=== PATIENT | female | born 1935 | race Caucasian/White ===

== ENCOUNTER 2016-09-06 08:00 | Outpatient (CLI) | payer MEDICARE, OTHER | END 2016-09-06 08:01 | disposition home or self-care (01) | DX: E11.9 Type 2 diabetes mellitus without complications (principal); K58.9 Irritable bowel syndrome, unspecified ==

== ENCOUNTER 2017-01-06 07:18 | Outpatient (CLI) | payer MEDICARE, OTHER ==
[2017-01-06 12:23] LABS: ALBUMIN/GLOBULIN RATIO 1.2 (1.0-2.2); BILIRUBIN,TOTAL 0.4 mg/dL (0.2-1.0); BUN - BLOOD UREA NITROGEN 18 mg/dL (6-20); CALCIUM 9.4 mg/dL (8.5-10.3); CARBON DIOXIDE - CO2 23 mmol/L (21-32); CHLORIDE 104 mmol/L (101-111); CHOL/HDL RATIO 3.7 (<4.4); CHOLESTEROL 164 mg/dL; CREATININE 0.8 mg/dL (0.4-1.0); GFR - MDRD 69 (>89); GLUCOSE 115 mg/dL (70-100); HDL CHOLESTEROL 44 mg/dL; POTASSIUM 4.1 mmol/L (3.5-5.0); SODIUM 136 mmol/L (135-145); TOTAL PROTEIN 7.6 g/dL (6.7-8.2); TRIGLYCERIDES 158 mg/dL; VLDL CHOLESTEROL 32 mg/dL
[2017-01-06 12:50] LABS: HEMOGLOBIN A1C 0.63 g/dL
== END 2017-01-06 07:19 | disposition home or self-care (01) ==
LOC: LAB.F 07:18
PROVIDERS: ATTEND Physician Assistant Medical
DX: E11.9 Type 2 diabetes mellitus without complications (principal)
CPT/HCPCS: 36415; 80053; 80061; 83036

== ENCOUNTER 2017-03-03 11:09 | Emergency (ER) | payer MEDICARE, OTHER ==
[2017-03-03 11:28] VITALS: BP 130/75
--- NOTE | 2017-03-03 13:10 | ED Physician Documentation ---
PD HPI LOWER EXT INJURY - Stated complaint Stated Complaint: R LEG INJ-PX - Chief complaint Chief Complaint: Ext Problem - History obtained from History obtained from: Patient - History of Present Illness PD HPI LOW EXT INJURY LOCATION: Right, Upper leg, Lower leg, Ankle Type of injury: Blunt / blow (a headboard leaning fell over and struck her in lateral right lower thigh, then to lower leg and outer ankle. Pain in those areas with bruising.) Where injury occurred: Home Timing - onset: Today Timing - details: Abrupt onset, Still present Worsened by: Moving, Palpating Associated symptoms: Swelling, Discolored (bruising in those areas). No: Weakness, Numbness Contributing factors: No: Anticoagulated Similar symptoms before: Has not had sx before Recently seen: Not recently seen Review of Systems Constitutional: denies: Fever, Chills Cardiac: denies: Chest pain / pressure GI: denies: Abdominal Pain Skin: reports: Abrasion (s). denies: Laceration (s) Neurologic: denies: Focal weakness, Numbness, Altered mental status, Headache, Head injury PD PAST MEDICAL HISTORY - Past Medical History Cardiovascular: Hypertension Endocrine/Autoimmune: Type 2 diabetes - Present Medications Home Medications: Ambulatory Orders Medication Instructions Recorded Confirmed Lisinopril 2.5 mg PO DAILY 07/06/14 03/03/17 Lovastatin 40 mg PO DAILY 07/06/14 03/03/17 Metformin HCl 1,000 mg PO BID 07/06/14 03/03/17 Anastrozole 1 mg PO DAILY 03/03/17 03/03/17 Anastrozole 1 mg PO DAILY 03/03/17 03/03/17 Fluticasone [Flonase] 1 spray SABINE DAILY PRN 03/03/17 03/03/17 Fluticasone [Flonase] 1 sprays SABINE DAILY 03/03/17 03/03/17 Methenamine Hippurate 1 gm PO BID 03/03/17 03/03/17 Methenamine Hippurate 1 gm PO BID 03/03/17 03/03/17 Metoprolol Tartrate 25 mg PO BID 03/03/17 03/03/17 Pantoprazole [Protonix] 40 mg PO DAILY 03/03/17 03/03/17 Pantoprazole [Protonix] 40 mg PO DAILY 03/03/17 03/03/17 - Allergies Allergies/Adverse Reactions: Allergies Allergy/AdvReac Type Severity Reaction Status Date / Time amoxicillin Allergy Anaphylaxis Verified 03/03/17 12:58 aspirin Allergy Nausea Verified 03/03/17 12:58 nitrofurantoin Allergy Anaphylaxis Verified 03/03/17 12:58 [From Macrobid] nitrofurantoin Allergy Anaphylaxis Verified 03/03/17 12:58 macrocrystalline * [From Macrobid] levofloxacin AdvReac Nausea Verified 03/03/17 12:58 - Social History Does the pt smoke?: No Smoking Status: Never smoker Does the pt drink ETOH?: No Does the pt have substance abuse?: No - Immunizations Immunizations are current?: No Immunizations: TDAP >10years/unknown - POLST Patient has POLST: No PD ED PE NORMAL - Vitals Vital signs reviewed: Yes - General General: Alert and oriented X 3, Well developed/nourished - HEENT HEENT: Atraumatic - Neck Neck: Supple, no meningeal sign, No bony TTP, No adenopathy - Derm Derm: Normal color, Warm and dry - Extremities Extremities: Other (right lateral lower thigh with bruising and tenderness. No large hematoma at this time. Knee itslef is not tender with good stress testing and no effusion, good ROM. Right lower leg with bruising/tender lateral lower leg and outer ankle/ proximal foot. Distal foot and toes not tender. Good color and cap refill in toes. ) - Neuro Neuro: No motor deficit, No sensory deficit Results - Vitals Vitals: Vital Signs - 24 hr 03/03/17 03/03/17 11:23 14:46 Temperature 36.5 C Heart Rate 69 78 Respiratory 16 16 Rate Blood Pressure 130/75 O2 Saturation 97 Oxygen O2 Source Room air - Rads (name of study) right upper and lower legs and ankle Radiology: Prelim report reviewed, EMP read contemporaneously (no fractures) PD MEDICAL DECISION MAKING - ED course Complexity details: reviewed results (no fractures), considered differential, d/ w patient Departure - Departure Disposition: 01 Home, Self Care Clinical Impression: Multiple leg contusions Qualifiers: Encounter type: initial encounter Laterality: right Qualified Code(s): S80.11XA - Contusion of right lower leg, initial encounter Condition: Stable Record reviewed to determine appropriate education?: Yes Instructions: ED Contusion Lower Ext Follow-Up: Jing Vanessa PA-C [Primary Care Provider] - Comments: Tylenol or ibuprofen if needed for pains. Ice and cool towels to the areas of swelling periodically. He can try the ankle brace to see if it helps the ankle and foot feel better. It has not required for healing. Etienne wrap can be used for swelling. The bruising will likely come out below and around the current bruises over the next few days. This will cause a little bit of swelling locally. Recheck if continues to swell more at after several days or any other concerns develop. There are no fractures seen on x-rays. Discharge Date/Time: 03/03/17 14:47
--- NOTE | 2017-03-03 13:58 | XRAY Preliminary Report ---
Exam: XR Foot 3 View RT IMPRESSION: Normal foot radiography. [facility] SITE ID: [id number]
--- NOTE | 2017-03-03 14:00 | XRAY Preliminary Report ---
Exam: XR Ankle 3 View RT IMPRESSION: No bony abnormality. [facility] SITE ID: [id number]
--- NOTE | 2017-03-03 14:08 | XRAY Preliminary Report ---
Exam: XR Femur 2V RT IMPRESSION: No bony abnormality. [facility] SITE ID: [id number]
--- NOTE | 2017-03-03 14:09 | XRAY Report ---
EXAM: RIGHT FOOT RADIOGRAPHY EXAM DATE: 03/03/2017 01:40 PM. CLINICAL HISTORY: Dorsal foot pain after dropping heavy object on foot. COMPARISON: None. TECHNIQUE: 4 views. FINDINGS: Bones: Normal. No fractures or bone lesions. Joints: Normal. No subluxations. Soft Tissues: Normal. Phlebolith. Subcutaneous fat anterior medial to the distal tibia. No soft tissu e swelling. IMPRESSION: Normal foot radiography. [facility] Referring Provider Line: [phone] SITE ID: [id number]
--- NOTE | 2017-03-03 14:09 | XRAY Report ---
EXAM: RIGHT ANKLE RADIOGRAPHY EXAM DATE: 03/03/2017 01:39 PM. CLINICAL HISTORY: Lateral pain after dropping heavy object on leg and foot. COMPARISON: None. TECHNIQUE: 3 views. FINDINGS: Bones: Normal. No fractures or bone lesions. Joints: Normal. No effusion. No subluxations. The ankle mortise is normally aligned. Soft Tissues: Mild edema over the lateral malleolus. IMPRESSION: No bony abnormality. [facility] Referring Provider Line: [phone] SITE ID: [id number]
--- NOTE | 2017-03-03 14:19 | XRAY Report ---
EXAM: RIGHT FEMUR RADIOGRAPHY EXAM DATE: 03/03/2017 01:40 PM. CLINICAL HISTORY: Lateral right femur pain after dropping heavy object on leg. COMPARISON: None. TECHNIQUE: 4 views. FINDINGS: Bones: Normal. No fracture or bone lesion. Joints: The visualized hip and knee joints are normal. No effusions. Mild degenerative changes right sacroiliac joint. Soft Tissues: Surgical clips right groin. IMPRESSION: No bony abnormality. [facility] Referring Provider Line: [phone] SITE ID: [id number]
== END 2017-03-03 14:47 | disposition home or self-care (01) ==
LOC: ED 11:09
DX: S70.11XA Contusion of right thigh, initial encounter (principal); S90.01XA Contusion of right ankle, initial encounter; S90.31XA Contusion of right foot, initial encounter; S80.11XA Contusion of right lower leg, initial encounter; W20.8XXA Other cause of strike by thrown, projected or falling object, initial encounter; Y92.019 Unspecified place in single-family (private) house as the place of occurrence of the external cause; I10 Essential (primary) hypertension; E11.9 Type 2 diabetes mellitus without complications; Z79.84 Long term (current) use of oral hypoglycemic drugs
CPT/HCPCS: 99282; 99283

== ENCOUNTER 2017-08-04 07:24 | Outpatient (CLI) | payer MEDICARE, OTHER ==
[2017-08-04 10:38] LABS: BASOPHILS % (AUTO) 0.7 %; EOSINOPHILS # (AUTO) 0.1 10^3/uL (0.0-0.7); EOSINOPHILS % (AUTO) 1.5 %; HGB - HEMOGLOBIN 12.6 g/dL (12.0-16.0); LYMPHOCYTES % (AUTO) 30.4 %; MEAN CORPUSCULAR HEMOGLOBIN 30.4 pg (27.0-31.0); MEAN CORPUSCULAR HGB CONC 33.4 g/dL (32.0-36.0); MEAN CORPUSCULAR VOLUME 90.8 fL (81.0-99.0); MEAN PLATELET VOLUME 10.1 fL (7.9-10.8); MONOCYTES # (AUTO) 0.6 10^3/uL (0.0-1.0); MONOCYTES % (AUTO) 8.8 %; NEUTROPHILS # (AUTO) 3.8 10^3/uL (1.5-6.6); NEUTROPHILS % (AUTO) 58.6 %; PLT - PLATELET COUNT 193 10^3/uL (130-450); RED BLOOD COUNT 4.14 10^6/uL (4.20-5.40); RED CELL DISTRIBUTION WIDTH 12.8 % (12.0-15.0); WHITE BLOOD COUNT 6.5 x10^3/uL (4.8-10.8)
[2017-08-04 10:46] LABS: CALCIUM 9.5 mg/dL (8.5-10.3); CREATININE 0.7 mg/dL (0.4-1.0)
[2017-08-04 11:01] LABS: HB2 TOTAL 13.4 g/dL; HEMOGLOBIN A1C 0.59 g/dL; HEMOGLOBIN A1C % 6.2 % (4.6-6.2)
== END 2017-08-04 07:25 | disposition home or self-care (01) ==
LOC: LAB.F 07:24
PROVIDERS: ATTEND Physician Assistant Medical
DX: E11.9 Type 2 diabetes mellitus without complications (principal); J30.9 Allergic rhinitis, unspecified
CPT/HCPCS: 36415; 80048; 82043; 83036; 85025

== ENCOUNTER 2018-03-05 07:14 | Outpatient (CLI) | payer MEDICARE, OTHER ==
[2018-03-05 10:48] LABS: ALBUMIN/GLOBULIN RATIO 1.3 (1.0-2.2); ALKALINE PHOSPHATASE 37 IU/L (42-121); ALT ALANINE AMINOTRANSFERASE 14 IU/L (10-60); AST ASPARTATE AMINOTRANSFERASE 20 IU/L (10-42); BILIRUBIN,TOTAL 0.6 mg/dL (0.2-1.0); BUN - BLOOD UREA NITROGEN 17 mg/dL (6-20); CALCIUM 9.2 mg/dL (8.5-10.3); CARBON DIOXIDE - CO2 25 mmol/L (21-32); CHLORIDE 104 mmol/L (101-111); CHOL/HDL RATIO 4.3 (<4.4); CHOLESTEROL 162 mg/dL; GFR - MDRD 53 (>89); GLUCOSE 110 mg/dL (70-100); HDL CHOLESTEROL 38 mg/dL; LDL CHOLESTEROL,CALCULATED 84 mg/dL; LDL/HDL RATIO 2.2 (<4.4); SODIUM 138 mmol/L (135-145); TOTAL PROTEIN 7.1 g/dL (6.7-8.2); VLDL CHOLESTEROL 40 mg/dL
[2018-03-05 13:35] LABS: HB2 TOTAL 12.7 g/dL; HEMOGLOBIN A1C 0.5 g/dL; HEMOGLOBIN A1C % 5.8 % (4.6-6.2)
== END 2018-03-05 07:15 | disposition home or self-care (01) ==
LOC: LAB.F 07:14
PROVIDERS: ATTEND Physician Assistant Medical
DX: E11.9 Type 2 diabetes mellitus without complications (principal)
CPT/HCPCS: 36415; 80053; 80061; 83036; 83721

== ENCOUNTER 2018-03-12 13:43 | Outpatient (CLI) | payer MEDICARE, OTHER ==
--- NOTE | 2018-03-12 15:30 | XRAY Report ---
Reason: KNEE PAIN,RIGHT Procedure Date: 03/12/2018 Accession Number: [id number] / [id number] Procedure: XR - Knee 2 View RT CPT Code: FULL RESULT: EXAM: RIGHT KNEE RADIOGRAPHY EXAM DATE: 03/12/2018 02:06 PM. CLINICAL HISTORY: Knee pain, right. COMPARISON: FEMUR 2V RT 03/03/2017 1:02 PM. TECHNIQUE: 2 views. FINDINGS: Bones: Normal. No fractures or bone lesions. Joints: Normal. No effusion. No subluxations. Soft Tissues: Normal. No soft tissue swelling. IMPRESSION: No acute fracture or dislocation. [facility]
== END 2018-03-12 13:44 | disposition home or self-care (01) ==
LOC: DI 13:43
PROVIDERS: ATTEND Physician Assistant Medical
DX: M25.561 Pain in right knee (principal)

== ENCOUNTER 2018-09-22 07:12 | Outpatient (CLI) | payer MEDICARE, OTHER ==
[2018-09-22 12:20] LABS: ALBUMIN 4.1 g/dL (3.2-5.5); ALBUMIN/GLOBULIN RATIO 1.2 (1.0-2.2); ALKALINE PHOSPHATASE 29 IU/L (42-121); ALT ALANINE AMINOTRANSFERASE 15 IU/L (10-60); AST ASPARTATE AMINOTRANSFERASE 16 IU/L (10-42); BILIRUBIN,TOTAL 0.4 mg/dL (0.2-1.0); BUN - BLOOD UREA NITROGEN 26 mg/dL (6-20); CALCIUM 9.5 mg/dL (8.5-10.3); CARBON DIOXIDE - CO2 25 mmol/L (21-32); CHLORIDE 101 mmol/L (101-111); CHOL/HDL RATIO 3.1 (<4.4); CHOLESTEROL 147 mg/dL; GFR - MDRD 53 (>89); GLUCOSE 119 mg/dL (70-100); HDL CHOLESTEROL 47 mg/dL; LDL CHOLESTEROL,CALCULATED 66 mg/dL; LDL/HDL RATIO 1.4 (<4.4); SODIUM 136 mmol/L (135-145); TOTAL PROTEIN 7.6 g/dL (6.7-8.2); VLDL CHOLESTEROL 34 mg/dL
[2018-09-22 12:31] LABS: HB2 TOTAL 13.2 g/dL; HEMOGLOBIN A1C 0.57 g/dL; HEMOGLOBIN A1C % 6.1 % (4.6-6.2)
== END 2018-09-22 07:13 | disposition home or self-care (01) ==
LOC: LAB.F 07:12
PROVIDERS: ATTEND Physician Assistant Medical
DX: E11.9 Type 2 diabetes mellitus without complications (principal)
CPT/HCPCS: 36415; 80053; 80061; 83036; 83721

== ENCOUNTER 2019-02-08 10:35 | Emergency (ER) | payer MEDICARE, OTHER ==
--- NOTE | 2019-02-08 11:02 | ED Physician Documentation ---
PD HPI URI - Stated complaint Stated Complaint: COUGHING BLOOD - Chief complaint Chief Complaint: Resp - History obtained from History obtained from: Patient, Family - History of Present Illness Timing - onset: How many weeks ago (1) Timing duration: Weeks (1) Timing details: Gradual onset, Still present Associated symptoms: Nasal congestion, Rhinorrhea, Sinus pain, Productive cough, Hemoptysis Improves by: Rest, Medication Worsened by: Activity Similar symptoms before: Has not had sx before Recently seen: Not recently seen - Additional information Additional information: 83-year-old female with a history of hypertension and type 2 diabetes was previously well until she was digging in some dirt with a lot of mold spores and she developed some nasal had drainage down the back of her throat and a cough develop and the cough is worsened and yesterday she was coughing up yellow phlegm this morning she is coughing up blood. Review of Systems Constitutional: reports: Fatigue. denies: Fever Eyes: denies: Photophobia Ears: denies: Ear pain Nose: reports: Rhinorrhea / runny nose, Congestion Throat: reports: Sore throat Cardiac: denies: Chest pain / pressure, Palpitations Respiratory: reports: Cough, Hemoptysis. denies: Dyspnea GI: denies: Abdominal Pain, Nausea, Vomiting PD PAST MEDICAL HISTORY - Past Medical History Cardiovascular: Hypertension Endocrine/Autoimmune: Type 2 diabetes - Present Medications Home Medications: Ambulatory Orders Medication Instructions Recorded Confirmed Lisinopril 2.5 mg PO DAILY 07/06/14 03/03/17 Lovastatin 40 mg PO DAILY 07/06/14 03/03/17 Metformin HCl 1,000 mg PO BID 07/06/14 03/03/17 Anastrozole 1 mg PO DAILY 03/03/17 03/03/17 Anastrozole 1 mg PO DAILY 03/03/17 03/03/17 Fluticasone [Flonase] 1 spray SABINE DAILY PRN 03/03/17 03/03/17 Fluticasone [Flonase] 1 sprays SABINE DAILY 03/03/17 03/03/17 Methenamine Hippurate 1 gm PO BID 03/03/17 03/03/17 Methenamine Hippurate 1 gm PO BID 03/03/17 03/03/17 Metoprolol Tartrate 25 mg PO BID 03/03/17 03/03/17 Pantoprazole [Protonix] 40 mg PO DAILY 03/03/17 03/03/17 Pantoprazole [Protonix] 40 mg PO DAILY 03/03/17 03/03/17 Azithromycin [Zithromax] 250 mg PO DAILY #6 tablet 02/08/19 - Allergies Allergies/Adverse Reactions: Allergies Allergy/AdvReac Type Severity Reaction Status Date / Time amoxicillin Allergy Anaphylaxis Verified 03/03/17 12:58 aspirin Allergy Nausea Verified 03/03/17 12:58 nitrofurantoin Allergy Anaphylaxis Verified 03/03/17 12:58 [From Macrobid] nitrofurantoin Allergy Anaphylaxis Verified 03/03/17 12:58 macrocrystalline * [From Macrobid] levofloxacin AdvReac Nausea Verified 03/03/17 12:58 - Social History Does the pt smoke?: No Smoking Status: Never smoker Does the pt drink ETOH?: No Does the pt have substance abuse?: No - Immunizations Immunizations are current?: No Immunizations: TDAP >10years/unknown - POLST Patient has POLST: No PD ED PE NORMAL - Vitals Vital signs reviewed: Yes (hypertensive ) - General General: Alert and oriented X 3, No acute distress, Well developed/nourished - HEENT HEENT: Atraumatic, PERRL, EOMI, Ears normal, Moist mucous membranes, Pharynx benign, Dentition benign - Neck Neck: Supple, no meningeal sign, No bony TTP - Cardiac Cardiac: RRR, No murmur - Respiratory Respiratory: No respiratory distress, Clear bilaterally - Abdomen Abdomen: Soft, Non tender - Back Back: No CVA TTP, No spinal TTP - Derm Derm: Normal color, Warm and dry, No rash - Extremities Extremities: No deformity, No edema - Neuro Neuro: Alert and oriented X 3, mold stacker 2-12 intact, No motor deficit, No sensory deficit, Normal speech Eye Opening: Spontaneous Motor: Obeys Commands Verbal: Oriented GCS Score: 15 - Psych Psych: Normal mood, Normal affect Results - Vitals Vitals: Vital Signs - 24 hr 02/08/19 02/08/19 10:41 10:44 Temperature 36.9 C 98.4 C H Heart Rate 66 63 Respiratory 18 16 Rate Blood Pressure 154/58 H 116/63 O2 Saturation 99 93 Oxygen O2 Source Room air - Rads (name of study) chest Radiology: Prelim report reviewed (Impression: No focal consolidation.), EMP read indepedently, See rad report PD MEDICAL DECISION MAKING - ED course Complexity details: reviewed results, re-evaluated patient, considered differential, d/w patient, d/w family ED course: Previously well 83-year-old female cough congestion producing yellow-green phlegm followed by hemoptysis as a negative chest x-ray unremarkable exam she does have cough. Departure - Departure Disposition: 01 Home, Self Care Clinical Impression: Cough with hemoptysis, Bronchitis Condition: Stable Instructions: ED Upper Resp Infec Abx Tx Follow-Up: Jing Vanessa PA-C [Primary Care Provider] - Prescriptions: Azithromycin [Zithromax] 250 mg PO DAILY #6 tablet
[2019-02-08 11:38] VITALS: BP 116/63
--- NOTE | 2019-02-08 12:05 | XRAY Report ---
Reason: coughing up blood Procedure Date: 02/08/2019 Accession Number: [id number] / [id number] Procedure: XR - Chest 2 View X-Ray CPT Code: 38435 FULL RESULT: EXAM: CHEST RADIOGRAPHY EXAM DATE: 02/08/2019 11:20 AM. CLINICAL HISTORY: Coughing up blood. COMPARISON: None. TECHNIQUE: 2 views. FINDINGS: Lungs/Pleura: No focal opacities evident. No pleural effusion. No pneumothorax. Normal volumes. Mediastinum: Heart and mediastinal contours are unremarkable. Other: None. IMPRESSION: No focal consolidation. [facility]
== END 2019-02-08 12:30 | disposition home or self-care (01) ==
LOC: ED 10:35
DX: J40 Bronchitis, not specified as acute or chronic (principal); R04.2 Hemoptysis; I10 Essential (primary) hypertension; E11.9 Type 2 diabetes mellitus without complications; Z79.84 Long term (current) use of oral hypoglycemic drugs
CPT/HCPCS: 71046; 99283; 99284

== ENCOUNTER 2019-03-08 07:34 | Outpatient (CLI) | payer MEDICARE, OTHER ==
[2019-03-08 10:48] LABS: ALBUMIN 4.2 g/dL (3.2-5.5); ALBUMIN/GLOBULIN RATIO 1.3 (1.0-2.2); ALKALINE PHOSPHATASE 28 IU/L (42-121); ALT ALANINE AMINOTRANSFERASE 14 IU/L (10-60); AST ASPARTATE AMINOTRANSFERASE 16 IU/L (10-42); BILIRUBIN,TOTAL 0.7 mg/dL (0.2-1.0); BUN - BLOOD UREA NITROGEN 25 mg/dL (6-20); CALCIUM 9.5 mg/dL (8.5-10.3); CARBON DIOXIDE - CO2 23 mmol/L (21-32); CHLORIDE 103 mmol/L (101-111); CHOL/HDL RATIO 3.3 (<4.4); CHOLESTEROL 150 mg/dL; CREATININE 0.9 mg/dL (0.4-1.0); GFR - MDRD 60 (>89); GLUCOSE 116 mg/dL (70-100); HDL CHOLESTEROL 46 mg/dL; LDL CHOLESTEROL,CALCULATED 74 mg/dL; LDL/HDL RATIO 1.6 (<4.4); SODIUM 138 mmol/L (135-145); TOTAL PROTEIN 7.5 g/dL (6.7-8.2); VLDL CHOLESTEROL 30 mg/dL
[2019-03-08 10:51] LABS: HB2 TOTAL 12.8 g/dL; HEMOGLOBIN A1C 0.56 g/dL; HEMOGLOBIN A1C % 6.2 % (4.6-6.2)
== END 2019-03-08 07:35 | disposition home or self-care (01) ==
LOC: LAB.S 07:34
PROVIDERS: ATTEND Physician Assistant Medical
DX: E11.9 Type 2 diabetes mellitus without complications (principal)
CPT/HCPCS: 36415; 80053; 80061; 83036; 83721

== ENCOUNTER 2019-09-30 08:53 | Outpatient (CLI) | payer MEDICARE, OTHER ==
[2019-09-30 09:37] LABS: CALCIUM 9.9 mg/dL (8.5-10.3)
[2019-09-30 10:13] LABS: HB2 TOTAL 13.4 g/dL; HEMOGLOBIN A1C 0.59 g/dL; HEMOGLOBIN A1C % 6.2 % (4.6-6.2)
[2019-09-30 10:26] LABS: CREATININE,URINE 121.1 mg/dL; MICROALBUMIN,URINE 2.3 mg/dL (0-300.0)
== END 2019-09-30 08:54 | disposition home or self-care (01) ==
LOC: LAB 08:53
PROVIDERS: ATTEND Physician Assistant Medical
DX: E11.9 Type 2 diabetes mellitus without complications (principal)
CPT/HCPCS: 36415; 80048; 82043; 82570; 83036

== ENCOUNTER 2019-12-22 19:01 | Emergency (ER) | payer MEDICARE, OTHER ==
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
[2019-12-22 21:36] VITALS: BP 137/75
== END 2019-12-22 21:46 | disposition home or self-care (01) ==
LOC: ED 19:01
DX: R51 Headache (principal); I10 Essential (primary) hypertension; E11.9 Type 2 diabetes mellitus without complications; Z79.84 Long term (current) use of oral hypoglycemic drugs
CPT/HCPCS: 70450; 99282; 99284

== ENCOUNTER 2020-02-10 12:31 | Outpatient (CLI) | payer OTHER, MEDICARE ==
--- NOTE | 2020-02-10 15:19 | MRI Report ---
PROCEDURE: Lumbar Spine W/O INDICATIONS: NECK PAIN, LOW BACK PAIN TECHNIQUE: Noncontrast sagittal T1 spin echo and T2 fast echo, sagittal STIR, axial T1 and T2 fast spin echo thr ough the lumbar spine. In cases with scoliosis, additional coronal T2 fast spin echo may be performe d. COMPARISON: Correlation is made with cervical spine MRI 02/10/2020. Correlation is also made with [facility] pelvis CT 05/13/2015. FINDINGS: Image quality: Excellent. Alignment and Curvature: There is minimal retrolisthesis seen at L1-L2 and L2-L3. Mild grade 1 anter olisthesis is seen at L3-L4 and L4-L5. No associated pars defects can be seen. Mild to moderate levoc onvex scoliotic curvature is seen. Bone Marrow: Marrow is of normal overall signal. No acute vertebral body compression fractures. Spinal Cord: Conus medullaris terminates at the L1 level. Visualized cord demonstrates normal signa l and size. Paraspinous Soft Tissues: No paravertebral masses. T12-L1: The disc height is well-preserved. There is loss of disc signal seen. Bridging anterior osteophytes are seen. Mild disc bulge is seen. Mild facet hypertrophy is seen. No neural foramina l or central canal narrowing can be seen. L1-L2: Moderate loss of disc height and disc signal can be seen on the left side. Bridging endplat e osteophytes can be seen on the left. Moderate disc bulge is seen, which is eccentric to the left. Moderate facet hypertrophy is seen. There is moderate right-sided and moderate to severe left-sided n euroforaminal narrowing seen. A degree of compression can be seen upon the exiting left L1 nerve root . Mild to moderate central canal narrowing is seen. L2-L3: Mild loss of disc height and disc signal are seen. Mild to moderate disc bulge is seen. A t least moderate facet hypertrophy is seen. Associated hypertrophy of the ligamentum flavum can be s een. There is at least moderate right-sided and moderate left-sided neuroforaminal narrowing seen. At least moderate central canal narrowing is seen, as on series 801 image 23. L3-L4: Mild to moderate loss of disc height and disc signal can be seen on the right side. At least moderate disc bulge is seen, with a central disc protrusion. Prominent facet hypertrophy is seen at this level. Moderate to severe bilateral neuroforaminal narrowing can be seen, right worse than left. Moderate to severe central canal narrowing is seen, as on series 801 image 17. L4-L5: There is moderate loss of disc height seen on the right. Loss of disc signal is seen. Modera te disc bulge seen, which is eccentric to the right. Bridging plate osteophytes are seen on the right . There is prominent right-sided and moderate left-sided facet hypertrophy seen. There is moderate to severe right-sided and moderate left-sided neuroforaminal narrowing seen. Moderate central canal na rrowing is seen. L5-S1: The disc height is well-preserved. There is loss of disc signal seen. Mild to moderate disc bulge is seen. Mild to moderate facet hypertrophy is seen. There is no significant neuroforaminal na rrowing seen. No central canal narrowing is seen. IMPRESSION: Multiple levels of lumbar spine degenerative change are seen, which are overall most pro minent at the L3-L4 level. Reviewed by: James Eid MD on 02/10/2020 2:17 PM [facility]U Approved by: James Eid MD on 02/10/2020 2:17 PM WU Station ID: [id number]
--- NOTE | 2020-02-10 16:52 | MRI Report ---
PROCEDURE: Cervical Spine W/O INDICATIONS: NECK PAIN, LOW BACK PAIN TECHNIQUE: Noncontrast sagittal T1 spin echo and T2 fast spin echo, sagittal STIR, foraminal oblique sagittal T2 fast spin echo, and axial gradient echo or T2 fast spin echo through the cervical spine. COMPARISON: None. FINDINGS: Image quality: Excellent. Alignment and Curvature: There is normal bony alignment. Bone Marrow: Reactive endplate changes noted adjacent to the C4-C5, C5-C6 and C6-C7 discs. Spinal Cord: Visualized spinal cord has normal size and signal. No cerebellar tonsillar herniation. Paraspinous Soft Tissues: No paravertebral masses. Prevertebral soft tissues are normal in thicknes s. No paraspinous soft tissue edema. C2-C3: Loss of disc signal. No central stenosis. No neural foraminal narrowing. No neural compressio n. C3-C4: Loss of disc signal. Mild, diffuse disc bulge. Small right central disc protrusion. Mild sourav ateral facet hypertrophy. Mild narrowing of the central canal. Mild right uncovertebral joint hypertr ophy. Severe right and mild left neural foraminal narrowing with compression of the exiting right C4 nerve root. C4-C5: Loss of disc signal and height. Moderate, diffuse disc bulge. Mild bilateral facet hypertroph y. Mild right uncovertebral joint hypertrophy. Moderate to severe narrowing of the central canal. Sev ere right and moderate left neural foraminal narrowing with compression of the exiting right C5 nerve root. C5-C6: Loss of disc signal and height. Mild, diffuse disc bulge. Mild bilateral facet hypertrophy. M ild bilateral uncovertebral joint hypertrophy. Moderate narrowing of the central canal. Severe right and [id number] left neural foraminal narrowing with compression of the exiting right C6 nerve r oot. C6-C7: Loss of disc signal and height. Mild to moderate diffuse disc bulge. Small central disc protr usion. Mild bilateral facet hypertrophy Moderate narrowing of the central canal. Mild right neural fo raminal narrowing. No neural compression. C7-T1: Normal in appearance. IMPRESSION: 1. Multilevel degenerative disc disease. 2. Multilevel facet and uncovertebral arthropathy. 3. Moderate to severe C4-C5 central canal narrowing. 4. Severe right C3-C4, C4-C5 and C5-C6 neural foraminal narrowing with compression of the exiting rig ht C4, exiting right C5 and exiting right C6 nerve roots. Reviewed by: Rosmery Patricia MD, PhD on 02/10/2020 4:50 PM PDT Approved by: Rosmery Patricia MD, PhD on 02/10/2020 4:50 PM PDT Station ID: [id number]
== END 2020-02-10 12:32 | disposition home or self-care (01) ==
LOC: DI 12:31
PROVIDERS: ATTEND Physician Assistant Medical
DX: M51.35 Other intervertebral disc degeneration, thoracolumbar region (principal); M47.815 Spondylosis without myelopathy or radiculopathy, thoracolumbar region; M51.36 Other intervertebral disc degeneration, lumbar region; M48.061 Spinal stenosis, lumbar region without neurogenic claudication; M47.816 Spondylosis without myelopathy or radiculopathy, lumbar region; M51.26 Other intervertebral disc displacement, lumbar region; M51.37 Other intervertebral disc degeneration, lumbosacral region; M47.817 Spondylosis without myelopathy or radiculopathy, lumbosacral region; M50.31 Other cervical disc degeneration, high cervical region; M47.812 Spondylosis without myelopathy or radiculopathy, cervical region; M48.02 Spinal stenosis, cervical region; M50.21 Other cervical disc displacement, high cervical region
CPT/HCPCS: 72141; 72148

== ENCOUNTER 2020-05-20 09:47 | Outpatient (CLI) | payer MEDICARE, OTHER ==
[2020-05-20 15:38] LABS: ALBUMIN 4.1 g/dL (3.2-5.5); ALBUMIN/GLOBULIN RATIO 1.2 (1.0-2.2); BILIRUBIN,TOTAL 0.8 mg/dL (0.2-1.0); CALCIUM 9.8 mg/dL (8.5-10.3); TOTAL PROTEIN 7.6 g/dL (6.7-8.2)
== END 2020-05-20 09:48 | disposition home or self-care (01) ==
LOC: LAB.S 09:47
PROVIDERS: ATTEND Internal Medicine Cardiovascular Disease
DX: I42.8 Other cardiomyopathies (principal); E78.49 Other hyperlipidemia
CPT/HCPCS: 36415; 80053

== ENCOUNTER 2020-06-07 07:43 | Outpatient (CLI) | payer MEDICARE, OTHER ==
[2020-06-07 15:47] LABS: CHOL/HDL RATIO 3.3 (<4.4); CHOLESTEROL 154 mg/dL; HDL CHOLESTEROL 47 mg/dL; LDL CHOLESTEROL,CALCULATED 70 mg/dL; LDL/HDL RATIO 1.5 (<4.4); VLDL CHOLESTEROL 37 mg/dL
[2020-06-07 18:59] LABS: HEMOGLOBIN A1c% 6.3 % (4.27-6.07)
== END 2020-06-07 07:44 | disposition home or self-care (01) ==
LOC: LAB.S 07:43
PROVIDERS: ATTEND Internal Medicine Cardiovascular Disease
DX: I42.8 Other cardiomyopathies (principal); E78.49 Other hyperlipidemia
CPT/HCPCS: 36415; 80061; 83036; 83721

== ENCOUNTER 2021-08-25 08:00 | Outpatient (CLI) | payer MEDICARE, OTHER ==
[2021-08-28 15:26] LABS: VARICELLA ZOSTER VIRUS IGM 0.21
== END 2021-08-25 23:59 | disposition home or self-care (01) ==
LOC: LAB.S 08:00
PROVIDERS: ATTEND Registered Nurse
DX: H92.01 Otalgia, right ear (principal); R51.9 Headache, unspecified; M54.2 Cervicalgia
CPT/HCPCS: 36415; 85651; 86140; 86787

== ENCOUNTER 2022-02-08 19:10 | Emergency (ER) | payer MEDICARE, OTHER ==
[2022-02-08 19:47] LABS: BASOPHILS # (AUTO) 0.1 10^3/uL (0.0-0.1); BASOPHILS % (AUTO) 0.5 %; EOSINOPHILS # (AUTO) 0.1 10^3/uL (0.0-0.7); EOSINOPHILS % (AUTO) 0.8 %; HCT - HEMATOCRIT 41.2 % (37.0-47.0); HGB - HEMOGLOBIN 13.6 g/dL (12.0-16.0); LYMPHOCYTES # (AUTO) 2.8 10^3/uL (1.5-3.5); LYMPHOCYTES % (AUTO) 25.7 %; MEAN CORPUSCULAR HEMOGLOBIN 30.6 pg (27.0-31.0); MEAN CORPUSCULAR VOLUME 92.6 fL (81.0-99.0); MEAN PLATELET VOLUME 10.6 fL (7.9-10.8); MONOCYTES # (AUTO) 0.8 10^3/uL (0.0-1.0); MONOCYTES % (AUTO) 7.3 %; NEUTROPHILS # (AUTO) 7.2 10^3/uL (1.5-6.6); NEUTROPHILS % (AUTO) 65.4 %; PLT - PLATELET COUNT 273 10^3/uL (130-450); RED BLOOD COUNT 4.45 10^6/uL (4.20-5.40); RED CELL DISTRIBUTION WIDTH 13.6 % (12.0-15.0)
[2022-02-08 19:50] LABS: BILIRUBIN,URINE NEGATIVE (NEGATIVE); GLUCOSE, URINE (UA) NEGATIVE (NEGATIVE); KETONES,URINE (UA) NEGATIVE (NEGATIVE); LEUKOCYTE ESTERASE, URINE SMALL (NEGATIVE); NITRITE,URINE POSITIVE (NEGATIVE); OCCULT BLOOD,URINE NEGATIVE (NEGATIVE); PROTEIN,URINE NEGATIVE (NEGATIVE); UROBILINOGEN,URINE 0.2 (NORMAL) E.U./dL (NORMAL)
[2022-02-08 19:55] LABS: ALBUMIN 4.6 g/dL (3.2-5.5); ALBUMIN/GLOBULIN RATIO 1.3 (1.0-2.2); BILIRUBIN,TOTAL 0.7 mg/dL (0.2-1.0); CALCIUM 10.2 mg/dL (8.5-10.3); CREATININE 1.1 mg/dL (0.4-1.0); POTASSIUM 4.6 mmol/L (3.5-5.0); TOTAL PROTEIN 8.1 g/dL (6.7-8.2)
[2022-02-08 19:56] LABS: CLARITY,URINE CLEAR (CLEAR)
[2022-02-08 20:01] LABS: RBC,URINE 0-5 /HPF (0-5); WBC CLUMPS,URINE PRESENT
[2022-02-08 20:02] LABS: BACTERIA,URINE Many /HPF (None Seen); CASTS, URINE 3-5 Hyaline Casts /LPF; SQUAMOUS EPITHELIAL CELL,UR FEW Squamous (<= Few)
[2022-02-08] MEDS ORDERED: ONDANSETRON 4 MG/2 ML VIAL IVP STA (20:25)
[2022-02-08] MEDS ORDERED: SODIUM CHLORIDE 0.9% 500 ML IV STA (20:25)
--- NOTE | 2022-02-08 23:06 | CT Report ---
PROCEDURE: There is mild dorsal subcutaneous tissue edema. Swelling acute consolidation. INDICATIONS: lower abd pain CONTRAST: IV CONTRAST: Optiray 320 ml: 100 PO CONTRAST: *NO PO CONTRAST TECHNIQUE: After the administration of intravenous contrast, 5 mm thick sections acquired from the diaphragms to the symphysis. 5 mm thick coronal and sagittal reformats were acquired. For radiation dose reducti on, the following was used: automated exposure control, adjustment of mA and/or kV according to janene ent size. COMPARISON: CT abdomen pelvis 05/13/2015. FINDINGS: Image quality: Excellent. Lung bases:There is minimal dependent atelectasis. Heart: Heart is normal in size. ABDOMEN: Liver: No mass lesion. Gallbladder: Within normal limits without calcified gallstones. Biliary ducts: No biliary ductal dilatation. Pancreas: Unremarkable. Spleen: Normal in size. Adrenal Glands: No adrenal nodules. Kidneys and Ureters: No hydronephrosis. Stomach and Bowel: Stomach, small bowel loops, and colon are normal in caliber and wall thickness. N o pericecal inflammatory changes to suggest appendicitis. There is colonic diverticulosis without acu te diverticulitis. Peritoneum: No abnormal intraperitoneal fluid. No free air. Ventral Wall: No hernia. Abdominal Nodes: No retroperitoneal or mesenteric adenopathy by size criteria. 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 The aorta measures up to 3.4 cm in transverse dimension at this level, increased from 2.6 cm previously. PELVIS: Pelvic Organs: Unremarkable. Bladder: Unremarkable. Pelvic Nodes: No enlarged lymph nodes. Miscellaneous: No inguinal hernias are seen. Bones: Visualized osseous structures demonstrate no suspicious focal lesions. IMPRESSION: 1. 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 2. Colonic diverticulosis without acute diverticular colitis. Reviewed by: Alvaro Thomas MD on 02/08/2022 11:05 PM PDT Approved by: Alvaro Thomas MD on 02/08/2022 11:05 PM PDT Station ID: [id number]
[2022-02-08] MEDS ORDERED: ONDANSETRON ODT 4 MG Prepack 2 TL PRN (23:31)
--- NOTE | 2022-02-08 23:35 | ED Physician Documentation ---
PD HPI ABD PAIN - Stated complaint Stated Complaint: ABD PX - Chief complaint Chief Complaint: Abd Pain - History obtained from History obtained from: Patient - Additional information Additional information: Patient presenting for evaluation of upper abdominal pain that started approximately 2 to 3 hours ago. Patient denies that she had eaten anything prior to the onset of her symptoms. The pain is sharp and aching. Nothing makes it better or worse. She denies associated vomiting. She reports a history of IBS and always has loose stools which have been unchanged. She reports her pain has already started to get better but she does continue to have some nausea. She reports having suprapubic pressure and urgency. Review of Systems Constitutional: denies: Fever Nose: denies: Congestion Cardiac: denies: Chest pain / pressure Respiratory: denies: Dyspnea GI: reports: Abdominal Pain, Nausea. denies: Vomiting : denies: Hematuria Musculoskeletal: denies: Back pain Neurologic: denies: Headache PD PAST MEDICAL HISTORY - Past Medical History Cardiovascular: Hypertension Respiratory: None Neuro: None Endocrine/Autoimmune: Type 2 diabetes GI: None STRATEGY CONSULTANT: Breast cancer HEENT: Macular degeneration Derm: None - Past Surgical History Past Surgical History: Yes Ortho: Shoulder arthroplasty - Present Medications Home Medications: Ambulatory Orders Medication Instructions Recorded Confirmed Lovastatin 40 mg PO DAILY 07/06/14 12/22/19 Metformin HCl 1,000 mg PO BID 07/06/14 12/22/19 lisinopriL [Lisinopril] 2.5 mg PO DAILY 07/06/14 12/22/19 Anastrozole 1 mg PO DAILY 03/03/17 12/22/19 Fluticasone [Flonase] 1 sprays SABINE DAILY 03/03/17 12/22/19 Metoprolol Tartrate 25 mg PO BID 03/03/17 12/22/19 Pantoprazole [Protonix] 40 mg PO DAILY 03/03/17 12/22/19 Ondansetron Odt [Zofran] 4 mg TL Q6H PRN #10 tablet 02/08/22 cephALEXin [Keflex] 500 mg PO Q6H #28 cap 02/08/22 - Allergies Allergies/Adverse Reactions: Allergies Allergy/AdvReac Type Severity Reaction Status Date / Time acetaminophen [From Percocet] Allergy Unknown Verified 02/08/22 19:25 amoxicillin Allergy Anaphylaxis Verified 02/08/22 19:25 aspirin Allergy Nausea Verified 02/08/22 19:25 codeine Allergy Unknown Verified 02/08/22 19:25 nitrofurantoin Allergy Anaphylaxis Verified 02/08/22 19:25 [From Macrobid] nitrofurantoin Allergy Anaphylaxis Verified 02/08/22 19:25 macrocrystalline * [From Macrobid] oxycodone [From Percocet] Allergy Unknown Verified 02/08/22 19:25 Sulfa (Sulfonamide Allergy Unknown Verified 02/08/22 19:25 Antibiotics) levofloxacin AdvReac Nausea Verified 02/08/22 19:25 - Social History Does the pt smoke?: No Smoking Status: Never smoker Does the pt drink ETOH?: No Does the pt have substance abuse?: No - Immunizations Immunizations are current?: No Immunizations: TDAP >10years/unknown - POLST Patient has POLST: No PD ED PE NORMAL - General General: Alert and oriented X 3, No acute distress, Well developed/nourished - HEENT HEENT: Atraumatic, Moist mucous membranes - Neck Neck: Supple, no meningeal sign - Cardiac Cardiac: RRR, No murmur, Strong equal pulses - Respiratory Respiratory: No respiratory distress, Clear bilaterally - Abdomen Abdomen: Normal bowel sounds, Soft, Non distended, Other (Suprapubic tenderness to palpation, mild epigastric tenderness, no rebound, no guarding) - Derm Derm: Warm and dry - Extremities Extremities: No edema Results - Vitals Vitals: Vital Signs - 24 hr 02/08/22 02/09/22 19:15 00:17 Temperature 36.1 C L Heart Rate 88 85 Respiratory 16 18 Rate Blood Pressure 142/82 H 140/85 H O2 Saturation 99 99 Oxygen O2 Source Room air - Labs Labs: Laboratory Tests 02/08/22 02/08/22 02/08/22 19:38 19:38 19:40 WBC 11.0 H RBC 4.45 Hgb 13.6 Hct 41.2 MCV 92.6 MCH 30.6 MCHC 33.0 RDW 13.6 Plt Count 273 MPV 10.6 Neut # (Auto) 7.2 H Lymph # (Auto) 2.8 [place] # (Auto) 0.8 Eos # (Auto) 0.1 Baso # (Auto) 0.1 Absolute Nucleated RBC 0.00 Nucleated RBC % 0.0 Sodium 136 Potassium 4.6 Chloride 102 Carbon Dioxide 22 Anion Gap 12.0 BUN 29 H Creatinine 1.1 H Estimated GFR (MDRD) 47 L Glucose 126 H Calcium 10.2 Total Bilirubin 0.7 AST 22 ALT 22 Alkaline Phosphatase 44 Total Protein 8.1 Albumin 4.6 Globulin 3.5 Albumin/Globulin Ratio 1.3 Lipase 49 Urine Color YELLOW Urine Clarity CLEAR Urine pH 6.0 Ur Specific Mobile <=1.005 Urine Protein NEGATIVE Urine Glucose (UA) NEGATIVE Urine Ketones NEGATIVE Urine Occult Blood NEGATIVE Urine Nitrite POSITIVE H Urine Bilirubin NEGATIVE Urine Urobilinogen 0.2 (NORMAL) Ur Leukocyte Esterase SMALL H Urine RBC 0-5 Urine WBC 11-25 H Urine WBC Clumps PRESENT Ur Squamous Epith Cells FEW Squamous Urine Bacteria Many H Urine Casts 3-5 Hyaline Casts Ur Microscopic Review INDICATED Urine Culture Comments INDICATED PD MEDICAL DECISION MAKING - ED course Complexity details: reviewed results, re-evaluated patient, d/w patient ED course: Patient presenting for evaluation of abdominal pain. On exam has mild epigastric and suprapubic tenderness. Urine suggests infection. Patient has to lerated Keflex in the past. Labs are otherwise unremarkable. CT scan was obtained. Reviewed the findings of the infrarenal Aortic aneurysm. Patient is aware that she needs follow-up for this to monitor. She reports her pain is gone. She is aware of need for close follow-up with primary care doctor and is advised on return precautions. Repeat abdominal exam is benign. 2315 - Patient is feeling better Departure - Departure Disposition: 01 Home, Self Care Clinical Impression: Epigastric abdominal pain, Aneurysm of infrarenal abdominal aorta, Cystitis Condition: Stable Instructions: ED Abdominal Pain Female Non-Specific Abdominal Pain, ED Aneurysm Abdominal Aortic Stable Follow-Up: GUY COLIN DO [Primary Care Provider] - Prescriptions: cephALEXin [Keflex] 500 mg PO Q6H #28 cap Ondansetron Odt [Zofran] 4 mg TL Q6H PRN #10 tablet PRN Reason: Nausea / Vomiting Comments: You were evaluated For abdominal pain. Your pain appears to have improved without pain medication. A CT scan shows a aneurysm to your aorta which appears slightly increased from a CT scan that was done a few years ago but is otherwise stable. Please follow-up with your primary care doctor regarding this.I have sent a prescription for nausea medications to [facility] in [place]. Your urine did show markers of an infection And I have also sent an antibiotic to [facility]. If you have any worsening symptoms please return to the emergency department. Discharge Date/Time: 02/09/22 00:19
[2022-02-08] MEDS ORDERED: cephALEXin 250 MG CAPSULE PO STA (23:47)
[2022-02-09 00:18] VITALS: BP 140/85
== END 2022-02-09 00:19 | disposition home or self-care (01) ==
LOC: ED 19:10
DX: I71.4 Abdominal aortic aneurysm, without rupture (principal); N30.90 Cystitis, unspecified without hematuria; R10.13 Epigastric pain; I10 Essential (primary) hypertension; E11.9 Type 2 diabetes mellitus without complications; Z79.84 Long term (current) use of oral hypoglycemic drugs
CPT/HCPCS: 36415; 74177; 80053; 81001; 83690; 85025; 87077; 87086; 87181; 96374; 99284; A9270; Q9967; 81003

== ENCOUNTER 2022-05-12 18:50 | Emergency (ER) | payer MEDICARE, OTHER ==
--- NOTE | 2022-05-12 19:16 | ED Physician Documentation ---
PD HPI CHEST PAIN - Stated complaint Stated Complaint: FEMALE - Chief complaint Chief Complaint: Abd Pain - History obtained from History obtained from: Patient - History of Present Illness Timing - onset: Last night (she states she has had some malaise and also dysuria for few days. Dx with UTI and started on Cephalexin 2 days ago. Last night, noted onset of aching feeling in shoulders and chest and felt heart rate going fast. Has not had it previously.) Timing - onset during: Rest Timing - details: Abrupt onset, Still present Quality: Aching Location: Substernal, Left shoulder/arm, Right shoulder/arm, Upper back Radiation: No: Jaw, Neck Improved by: No: Rest Worsened by: No: Inspiration, Movement, Palpation Associated symptoms: Palpitations. No: Shortness of air, Nausea, Vomiting, Feeling faint / dizzy Similar symptoms before: Has not had sx before Recently seen: Clinic (seen for dysuria and Dx with UTI couple of days ago.) Review of Systems Constitutional: reports: Myalgias. denies: Fever, Chills Nose: denies: Rhinorrhea / runny nose, Congestion Throat: denies: Sore throat Respiratory: denies: Cough Musculoskeletal: denies: Extremity swelling Neurologic: denies: Focal weakness, Numbness, Near syncope PD PAST MEDICAL HISTORY - Past Medical History Cardiovascular: Hypertension Respiratory: None Neuro: None Endocrine/Autoimmune: Type 2 diabetes GI: None MEDICAL TECH: Breast cancer HEENT: Macular degeneration Derm: None - Past Surgical History Past Surgical History: Yes Ortho: Shoulder arthroplasty - Present Medications Home Medications: Ambulatory Orders Medication Instructions Recorded Confirmed Metformin HCl 1,000 mg PO DAILY 07/06/14 05/12/22 lisinopriL [Lisinopril] 5 mg PO DAILY 07/06/14 05/12/22 Fluticasone [Flonase] 1 sprays SABINE DAILY 03/03/17 05/12/22 Metoprolol Tartrate 25 mg PO DAILY 03/03/17 05/12/22 Pantoprazole [Protonix] 40 mg PO DAILY 03/03/17 05/12/22 cephALEXin [Keflex] 500 mg PO Q6H #28 cap 02/08/22 05/12/22 Apixaban [Eliquis] 5 mg PO BID 15 Days #30 tablet 05/12/22 Calcium Carbonate/Vitamin D3 05/12/22 [Calcium 500 mg-Vit D3 600 Unit] Multivitamin/Iron/Folic Acid 05/12/22 [Centrum Women Tablet] diltiaZEM CD [Cardizem Cd] 120 mg PO DAILY 15 Days #15 cap 05/12/22 - Allergies Allergies/Adverse Reactions: Allergies Allergy/AdvReac Type Severity Reaction Status Date / Time amoxicillin Allergy Anaphylaxis Verified 05/13/22 10:44 aspirin Allergy Nausea Verified 05/13/22 10:44 codeine Allergy Unknown Verified 05/13/22 10:44 nitrofurantoin Allergy Anaphylaxis Verified 05/13/22 10:44 [From Macrobid] nitrofurantoin Allergy Anaphylaxis Verified 05/13/22 10:44 macrocrystalline * [From Macrobid] oxycodone [From Percocet] Allergy Unknown Verified 05/13/22 10:44 Sulfa (Sulfonamide Allergy Unknown Verified 05/13/22 10:44 Antibiotics) levofloxacin AdvReac Nausea Verified 05/13/22 10:44 - Social History Does the pt smoke?: No Smoking Status: Never smoker Does the pt drink ETOH?: No Does the pt have substance abuse?: No - Immunizations Immunizations are current?: No Immunizations: TDAP >10years/unknown - POLST Patient has POLST: No PD ED PE NORMAL - Vitals Vital signs reviewed: Yes - General General: Alert and oriented X 3, No acute distress, Well developed/nourished - HEENT HEENT: Pharynx benign - Neck Neck: Supple, no meningeal sign, No adenopathy - Cardiac Cardiac: No murmur. No: RRR (irregular and fast rate approx 140-150.) - Respiratory Respiratory: No respiratory distress, Clear bilaterally - Abdomen Abdomen: Soft, Non tender - Derm Derm: Normal color, Warm and dry - Extremities Extremities: Normal ROM s pain, No edema, No calf tenderness / cord - Neuro Neuro: Alert and oriented X 3, No motor deficit, Normal speech Results - Vitals Vitals: Vital Signs - 24 hr 05/12/22 05/12/22 05/12/22 18:59 19:10 19:23 Temperature 36.3 C L Heart Rate 168 H 150 H 140 H Respiratory 22 18 26 H Rate Blood Pressure 113/76 102/70 102/75 O2 Saturation 99 97 97 If not protocol 2 2 : Oxygen Flow, liters/minute 05/12/22 05/12/22 05/12/22 19:53 19:56 20:00 Temperature Heart Rate 129 H 155 H 92 Respiratory 23 16 20 Rate Blood Pressure 89/74 L 102/57 L 92/61 O2 Saturation 97 97 97 If not protocol 2 2 : Oxygen Flow, liters/minute 05/12/22 05/12/22 05/12/22 20:11 20:16 20:30 Temperature Heart Rate 82 74 87 Respiratory 16 20 24 Rate Blood Pressure 92/41 L 107/62 102/67 O2 Saturation 96 96 97 If not protocol 2 2 : Oxygen Flow, liters/minute 05/12/22 05/12/22 05/12/22 20:31 20:45 21:00 Temperature Heart Rate 73 85 96 Respiratory 23 19 17 Rate Blood Pressure 107/62 111/74 94/66 O2 Saturation 97 96 97 If not protocol 2 : Oxygen Flow, liters/minute 05/12/22 05/12/22 05/12/22 21:10 21:12 21:15 Temperature Heart Rate 97 99 99 Respiratory 19 16 24 Rate Blood Pressure 94/66 119/75 101/63 O2 Saturation 98 98 95 If not protocol 2 : Oxygen Flow, liters/minute 05/12/22 05/12/22 05/12/22 21:18 21:25 21:39 Temperature Heart Rate 99 88 92 Respiratory 21 22 20 Rate Blood Pressure 108/64 111/74 92/61 O2 Saturation 98 97 97 If not protocol 2 2 : Oxygen Flow, liters/minute 05/12/22 05/12/22 05/12/22 21:41 21:42 22:12 Temperature Heart Rate 131 H 146 H 85 Respiratory 21 18 18 Rate Blood Pressure 107/68 107/87 H 107/76 O2 Saturation 97 98 98 If not protocol 2 2 2 : Oxygen Flow, liters/minute Oxygen O2 Source Nasal cannula - EKG (time done) 18:59 Rate: Rate (enter#) (150) Rhythm: Atrial fibrillation QRS: Normal Ischemia: Normal ST segments. No: ST elevation c/w ischemia, ST depression - Labs Labs: Laboratory Tests 05/12/22 05/12/22 05/12/22 19:22 19:22 19:22 WBC 6.8 RBC 4.39 Hgb 13.2 Hct 41.1 MCV 93.6 MCH 30.1 MCHC 32.1 RDW 13.3 Plt Count 240 MPV 10.6 Neut # (Auto) 4.6 Lymph # (Auto) 1.4 L [place] # (Auto) 0.6 Eos # (Auto) 0.1 Baso # (Auto) 0.1 Absolute Nucleated RBC 0.00 Nucleated RBC % 0.0 Sodium 135 Potassium 4.5 Chloride 101 Carbon Dioxide 22 Anion Gap 12.0 BUN 21 H Creatinine 1.2 H Estimated GFR (MDRD) 43 L Glucose 146 H Calcium 9.4 Magnesium Total Bilirubin 0.8 AST 30 ALT 17 Alkaline Phosphatase 38 L Total Creatine Kinase Troponin I High Sens 10.0 B-Natriuretic Peptide Total Protein 7.4 Albumin 3.8 Globulin 3.6 Albumin/Globulin Ratio 1.1 Lipase 61 H TSH Nasal Adenovirus (PCR) Nasal B. parapertussis DNA (PCR) Nasal Coronavir 229E PCR Nasal Coronavir HKU1 PCR Nasal Coronavir NL63 PCR Nasal Coronavir OC43 PCR Nasal Enterovir/Rhinovir PCR Nasal Influenza B PCR Nasal Influenza A PCR Nasal Parainfluen 1 PCR Nasal Parainfluen 2 PCR Nasal Parainfluen 3 PCR Nasal Parainfluen 4 PCR Nasal RSV (PCR) Nasal B.pertussis DNA PCR Nasal C.pneumoniae (PCR) [place] Human Metapneumo PCR Nasal M.pneumoniae (PCR) Nasal SARS-CoV-2 (PCR) 05/12/22 05/12/22 05/12/22 19:22 19:22 19:22 WBC RBC Hgb Hct MCV MCH MCHC RDW Plt Count MPV Neut # (Auto) Lymph # (Auto) [place] # (Auto) Eos # (Auto) Baso # (Auto) Absolute Nucleated RBC Nucleated RBC % Sodium Potassium Chloride Carbon Dioxide Anion Gap BUN Creatinine Estimated GFR (MDRD) Glucose Calcium Magnesium 1.9 Total Bilirubin AST ALT Alkaline Phosphatase Total Creatine Kinase 85 Troponin I High Sens B-Natriuretic Peptide 241 H Total Protein Albumin Globulin Albumin/Globulin Ratio Lipase TSH 1.23 Nasal Adenovirus (PCR) Nasal B. parapertussis DNA (PCR) Nasal Coronavir 229E PCR Nasal Coronavir HKU1 PCR Nasal Coronavir NL63 PCR Nasal Coronavir OC43 PCR Nasal Enterovir/Rhinovir PCR Nasal Influenza B PCR Nasal Influenza A PCR Nasal Parainfluen 1 PCR Nasal Parainfluen 2 PCR Nasal Parainfluen 3 PCR Nasal Parainfluen 4 PCR Nasal RSV (PCR) Nasal B.pertussis DNA PCR Nasal C.pneumoniae (PCR) [place] Human Metapneumo PCR Nasal M.pneumoniae (PCR) Nasal SARS-CoV-2 (PCR) 05/12/22 19:29 WBC RBC Hgb Hct MCV MCH MCHC RDW Plt Count MPV Neut # (Auto) Lymph # (Auto) [place] # (Auto) Eos # (Auto) Baso # (Auto) Absolute Nucleated RBC Nucleated RBC % Sodium Potassium Chloride Carbon Dioxide Anion Gap BUN Creatinine Estimated GFR (MDRD) Glucose Calcium Magnesium Total Bilirubin AST ALT Alkaline Phosphatase Total Creatine Kinase Troponin I High Sens B-Natriuretic Peptide Total Protein Albumin Globulin Albumin/Globulin Ratio Lipase TSH Nasal Adenovirus (PCR) NOT DETECTED Nasal B. parapertussis DNA (PCR) NOT DETECTED Nasal Coronavir 229E PCR NOT DETECTED Nasal Coronavir HKU1 PCR NOT DETECTED Nasal Coronavir NL63 PCR NOT DETECTED Nasal Coronavir OC43 PCR NOT DETECTED Nasal Enterovir/Rhinovir PCR NOT DETECTED Nasal Influenza B PCR NOT DETECTED Nasal Influenza A PCR NOT DETECTED Nasal Parainfluen 1 PCR NOT DETECTED Nasal Parainfluen 2 PCR NOT DETECTED Nasal Parainfluen 3 PCR NOT DETECTED Nasal Parainfluen 4 PCR NOT DETECTED Nasal RSV (PCR) NOT DETECTED Nasal B.pertussis DNA PCR NOT DETECTED Nasal C.pneumoniae (PCR) NOT DETECTED [place] Human Metapneumo PCR NOT DETECTED Nasal M.pneumoniae (PCR) NOT DETECTED Nasal SARS-CoV-2 (PCR) NOT DETECTED - Rads (name of study) chest xray Radiology: Prelim report reviewed, See rad report (no acute process) Procedures - Procedural sedation Sedation prep: Informed consent, Time out completed, Last meal (lunch), PE p erformed, ASA 2 - mild disease, IV O2 monitor, ET CO2 monitor, RT present Sedation Medications: propofol Mallampati classification: I Patient status during sedation: Responds to tactile, Vitals remained stable, Maintained airway Sedation recovery: Recovered uneventfully Time in sedation (Minutes): 10 (she seemed sedated well, but states later that she does remember one of the shocks.) - Cardioversion - Major Attempt 1 Indication: Tachyarrhythmia Risks, benefits, alternatives explained to: Pt Prep: IV, O2, quality assurance monitor, Pulse ox, Airway equip CS via: Pads, AP approach Sync: Biphasic, 100j, 150j, 200j Post cardioversion rhythm: A-fib Performed by: ED MD LLAMAS MEDICAL DECISION MAKING - ED course Complexity details: re-evaluated patient (rate controlled with IV diltiazem but still fib. Her feeling of chest/back aching is resolved though. Given new onset of afib with some symptoms, I felt goal of sinus rhythm was laudable. Discussed with pt and she agrees on cardioversion. Unfortunately the cardioversion did not convert it.), considered differential (new onset atrial fib with symptoms onset last evening. Has been feeling ill and recent Dx of UTI. Denies alcohol use. minimal coffee. No stimulants. ), d/w patient ED course: unsuccessful cardioversion, but rate controlled and patient feeling okay. So no criteria for hospitalization. Will Rx PO diltiazem for rate control and start DOAC. She has had symptoms for just a day but in case Cardio would want to repeat cardioversion in near future. She has seen Dr. Gar previously so will have her contact their office tomorrow. Trop is normal so no apparent ischemic effect from the rapid fib. - Critical Care Time(min): 45 Comments: new onset atrial fib with fast rate, given iv medications for rate, and cardioversion. Time Includes: Direct patient care, Reassess patient, Document care, Coordinate care, Medical consult Data interpretation: Labs, Pulse ox Procedures excluded from critical care time: EKG Departure - Departure Disposition: 01 Home, Self Care Clinical Impression: New onset atrial fibrillation Condition: Stable Record reviewed to determine appropriate education?: Yes Instructions: ED Afib Follow-Up: GUY COLIN DO [Primary Care Provider] - Gwyn Gar MD [Provider Admit Priv/Credential] - Prescriptions: diltiaZEM CD [Cardizem Cd] 120 mg PO DAILY 15 Days #15 cap Apixaban [Eliquis] 5 mg PO BID 15 Days #30 tablet Comments: You do have new onset atrial fibrillation. It initially was going at a fast rate approximately 1 40-1 50. It has slowed down quite well with a dosing of diltiazem. However unfortunately was not responsive to cardioversion and remains in atrial fibrillation. 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 Sometimes this will revert back to a normal rhythm on its own over the next couple of days. Otherwise if he remained in fibrillation, your freight team associate can discuss treatment options. I transmitted prescription for Eliquis blood thinner and diltiazem rates controlled medication to your preferred pharmacy, [facility]. Call your freight team associate office tomorrow for more prompt follow-up appointment this coming week. Discharge Date/Time: 05/12/22 23:07
[2022-05-12 19:28] LABS: BASOPHILS # (AUTO) 0.1 10^3/uL (0.0-0.1); BASOPHILS % (AUTO) 0.7 %; EOSINOPHILS # (AUTO) 0.1 10^3/uL (0.0-0.7); EOSINOPHILS % (AUTO) 1.9 %; HCT - HEMATOCRIT 41.1 % (37.0-47.0); HGB - HEMOGLOBIN 13.2 g/dL (12.0-16.0); LYMPHOCYTES # (AUTO) 1.4 10^3/uL (1.5-3.5); LYMPHOCYTES % (AUTO) 20.2 %; MEAN CORPUSCULAR HEMOGLOBIN 30.1 pg (27.0-31.0); MEAN CORPUSCULAR HGB CONC 32.1 g/dL (32.0-36.0); MEAN CORPUSCULAR VOLUME 93.6 fL (81.0-99.0); MEAN PLATELET VOLUME 10.6 fL (7.9-10.8); MONOCYTES # (AUTO) 0.6 10^3/uL (0.0-1.0); MONOCYTES % (AUTO) 9.2 %; NEUTROPHILS # (AUTO) 4.6 10^3/uL (1.5-6.6); NEUTROPHILS % (AUTO) 67.9 %; PLT - PLATELET COUNT 240 10^3/uL (130-450); RED BLOOD COUNT 4.39 10^6/uL (4.20-5.40); RED CELL DISTRIBUTION WIDTH 13.3 % (12.0-15.0); WHITE BLOOD COUNT 6.8 x10^3/uL (4.8-10.8)
--- NOTE | 2022-05-12 19:34 | XRAY Report ---
PROCEDURE: Chest 1 View X-Ray INDICATIONS: Chest pain TECHNIQUE: One view of the chest was acquired. COMPARISON: None. FINDINGS: Surgical changes and devices: None. Lungs and pleura: No pleural effusions or pneumothorax. Lungs are clear. Mediastinum: Mediastinal contours appear normal. Heart size is normal. The aorta has atherosclerot ic calcifications. Bones and chest wall: No suspicious bony lesions. Overlying soft tissues appear unremarkable. IMPRESSION: No acute cardiopulmonary abnormality. Reviewed by: Chadwick Yuen on 05/12/2022 7:33 PM [facility] Approved by: Chadwick Yuen on 05/12/2022 7:33 PM [facility] Station ID: [id number]
[2022-05-12] MEDS ORDERED: SODIUM CHLORIDE 0.9% 500 ML IV STA (19:42)
[2022-05-12] MEDS ORDERED: diltiaZEM INJ 5 MG/ML VIAL IVP STA ×2 (19:42→21:21)
[2022-05-12] MEDS ORDERED: KETOROLAC 15 MG/ML VIAL IVP STA (19:43)
[2022-05-12 19:45] LABS: ALBUMIN 3.8 g/dL (3.2-5.5); ALBUMIN/GLOBULIN RATIO 1.1 (1.0-2.2); BILIRUBIN,TOTAL 0.8 mg/dL (0.2-1.0); CALCIUM 9.4 mg/dL (8.5-10.3); CREATININE 1.2 mg/dL (0.4-1.0); POTASSIUM 4.5 mmol/L (3.5-5.0); TOTAL PROTEIN 7.4 g/dL (6.7-8.2)
[2022-05-12 19:59] LABS: MAGNESIUM 1.9 mg/dL (1.7-2.8)
[2022-05-12 20:41] LABS: B. PARAPERTUSSIS- RESP PCR PAN NOT DETECTED; B. PERTUSSIS- RESP PCR PANEL NOT DETECTED; C. PNEUMONIAE- RESP PCR PANEL NOT DETECTED; CORONAVIRUS 229E-RESP PCR NOT DETECTED; CORONAVIRUS HKU1-RESP PCR NOT DETECTED; CORONAVIRUS NL63-RESP PCR NOT DETECTED; CORONAVIRUS OC43-RESP PCR NOT DETECTED; HUMAN METAPNEUMOVIRUS NOT DETECTED; INFLUENZA A- RESP PCR PANEL NOT DETECTED; INFLUENZA B - RESP PCR PANEL NOT DETECTED; M. PNEUMONIAE- RESP PCR PANEL NOT DETECTED; PARAINFLUENZA VIRUS 1 NOT DETECTED; PARAINFLUENZA VIRUS 2 NOT DETECTED; PARAINFLUENZA VIRUS 3 NOT DETECTED; PARAINFLUENZA VIRUS 4 NOT DETECTED; RHINOVIRUS/ENTEROVIRUS NOT DETECTED; RSV- RESP PCR PANEL NOT DETECTED; SARS-CoV-2 -RESP PCR PANEL NOT DETECTED
[2022-05-12] MEDS ORDERED: PROPOFOL 200 MG/20 ML VIAL IVP STA (20:57)
[2022-05-12] MEDS ORDERED: diltiaZEM CD 120 MG CAPSULE PO STA (21:21)
[2022-05-12 22:14] VITALS: BP 107/76
== END 2022-05-12 23:07 | disposition home or self-care (01) ==
LOC: ED 18:50
DX: I48.91 Unspecified atrial fibrillation (principal); N39.0 Urinary tract infection, site not specified; I10 Essential (primary) hypertension; E11.9 Type 2 diabetes mellitus without complications; Z20.822 Contact with and (suspected) exposure to COVID-19
CPT/HCPCS: 36415; 71045; 80053; 82550; 83690; 83735; 83880; 84443; 84484; 85025; 87633; 92960; 93005; 96374; 96375; 96376; 99152; 99291; A9270

== ENCOUNTER 2022-05-13 10:05 | Emergency (ER) | payer MEDICARE, OTHER ==
--- NOTE | 2022-05-13 12:07 | Ultrasound Report ---
PROCEDURE: Duplex Ext Veins Right INDICATIONS: Pain. SOA. New onset afib TECHNIQUE: Real-time imaging, as well as color and pulse Doppler interrogation, were performed of the lower extr emity deep veins from the inguinal ligament to the popliteal fossa. COMPARISON: None. FINDINGS: The deep veins are normally compressible, and free of intraluminal thrombus. Color and pu lse Doppler demonstrate normal phasic intraluminal flow. There is normal augmentation response to di stal compression maneuver. IMPRESSION: Negative right lower extremity duplex ultrasound for DVT. Reviewed by: Ismael Cornell MD on 05/13/2022 12:06 PM PST Approved by: Ismael Cornell MD on 05/13/2022 12:06 PM PST Station ID: [id number]
[2022-05-13] MEDS ORDERED: ACETAMINOPHEN 325 MG TABLET PO STA (14:35)
[2022-05-13] MEDS ORDERED: LIDOCAINE PATCH 5% TOP STA (14:35)
--- NOTE | 2022-05-13 14:50 | ED Physician Documentation ---
History of Present Illness - Stated complaint Stated Complaint: POSS BLOOD CLOT IN LEG - Chief complaint Chief Complaint: Cardiac - History obtained from History obtained from: Patient - Additonal information Additional information: Patient is an 86-year-old female with a new diagnosis of atrial fibrillation presenting for evaluation of burning leg pain that started this morning. Patient was seen yesterday with UTI symptoms and also found to have atrial fibrillation. She was started on Eliquis but has not picked up the prescription today. She denies Chest pain or difficulty breathing. She denies injury or trauma to the leg. She is not taking anything for her symptoms this morning. Pain is worse as she is ambulating. She denies noticeable leg swelling. Review of Systems Constitutional: denies: Fever Cardiac: denies: Chest pain / pressure Respiratory: denies: Dyspnea GI: denies: Abdominal Pain, Vomiting : denies: Dysuria Musculoskeletal: reports: Extremity pain Neurologic: denies: Headache PD PAST MEDICAL HISTORY - Past Medical History Cardiovascular: Hypertension Respiratory: None Neuro: None Endocrine/Autoimmune: Type 2 diabetes GI: None [employer]: Breast cancer HEENT: Macular degeneration Derm: None - Past Surgical History Past Surgical History: Yes Ortho: Shoulder arthroplasty - Present Medications Home Medications: Ambulatory Orders Medication Instructions Recorded Confirmed Metformin HCl 1,000 mg PO DAILY 07/06/14 05/12/22 lisinopriL [Lisinopril] 5 mg PO DAILY 07/06/14 05/12/22 Fluticasone [Flonase] 1 sprays SABINE DAILY 03/03/17 05/12/22 Metoprolol Tartrate 25 mg PO DAILY 03/03/17 05/12/22 Pantoprazole [Protonix] 40 mg PO DAILY 03/03/17 05/12/22 cephALEXin [Keflex] 500 mg PO Q6H #28 cap 02/08/22 05/12/22 Apixaban [Eliquis] 5 mg PO BID 15 Days #30 tablet 05/12/22 Calcium Carbonate/Vitamin D3 05/12/22 [Calcium 500 mg-Vit D3 600 Unit] Multivitamin/Iron/Folic Acid 05/12/22 [Centrum Women Tablet] diltiaZEM CD [Cardizem Cd] 120 mg PO DAILY 15 Days #15 cap 05/12/22 - Allergies Allergies/Adverse Reactions: Allergies Allergy/AdvReac Type Severity Reaction Status Date / Time amoxicillin Allergy Anaphylaxis Verified 05/13/22 10:44 aspirin Allergy Nausea Verified 05/13/22 10:44 codeine Allergy Unknown Verified 05/13/22 10:44 nitrofurantoin Allergy Anaphylaxis Verified 05/13/22 10:44 [From Macrobid] nitrofurantoin Allergy Anaphylaxis Verified 05/13/22 10:44 macrocrystalline * [From Macrobid] oxycodone [From Percocet] Allergy Unknown Verified 05/13/22 10:44 Sulfa (Sulfonamide Allergy Unknown Verified 05/13/22 10:44 Antibiotics) levofloxacin AdvReac Nausea Verified 05/13/22 10:44 - Social History Does the pt smoke?: No Smoking Status: Never smoker Does the pt drink ETOH?: No Does the pt have substance abuse?: No - Immunizations Immunizations are current?: No Immunizations: TDAP >10years/unknown - POLST Patient has POLST: No PD ED PE NORMAL - General General: Alert and oriented X 3, No acute distress, Well developed/nourished - HEENT HEENT: Atraumatic, Moist mucous membranes, Pharynx benign - Neck Neck: Supple, no meningeal sign - Cardiac Cardiac: Other (Bradycardia, regular rhythm) - Respiratory Respiratory: No respiratory distress, Clear bilaterally - Abdomen Abdomen: Soft, Non tender - Derm Derm: Warm and dry - Extremities Extremities: No edema, Other (Varicose veins to right leg which patient reports is the area of her discomfort, no overlying erythema or swelling, Normal range of motion at right hip and knee; Pedal pulses intact) Results - Vitals Vitals: Vital Signs - 24 hr 05/13/22 05/13/22 05/13/22 10:37 10:43 14:31 Temperature 36.0 C L 36.5 C 36.5 C Heart Rate 44 L 44 L 50 L Respiratory 28 H 28 H 16 Rate Blood Pressure 101/45 L 101/45 L 158/69 H O2 Saturation 97 97 100 05/13/22 15:05 Temperature 36.5 C Heart Rate 50 L Respiratory 16 Rate Blood Pressure 148/72 H O2 Saturation 98 Oxygen O2 Source Room air PD MEDICAL DECISION MAKING - ED course ED course: Pt evaluated for pain in R leg, newly diagnosed with atrial fib yesterday. U/s negative for DVT. Pain in region of varicose vein. No trauma and exam does not suggest fracture/dislocation. No evidence of infection. Pt counseled to continue with supportive care. Also noted to have Hr in 40s-50s. No CP/SOB/dizziness. Pt ambulating well. Will have pt hold off on starting cardizem she was prescribed yesterday. Aware of need for close follow up and advised to return with any concerning symptoms. Departure - Departure Disposition: Home, Self Care Clinical Impression: Right leg pain, Junctional rhythm Condition: Stable Instructions: ED Veins Varicose Comments: Your EKG today shows that your heart rate is low. Please do not take the diltiazem that was prescribed to you at this may further lower your heart rate. Please continue with the Eliquis as prescribed. 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 Your ultrasound of the right leg does not show a blood clot. Your symptoms are in the region of varicose veins. I would recommend acetaminophen, lidocaine patches, ice versus heat and elevation to see if your symptoms improve. Please take it easy for the next several days. If you have any worsening symptoms such as chest pain or difficulty breathing then please return to the emergency department. Discharge Date/Time: 05/13/22 15:05
[2022-05-13 15:07] VITALS: BP 148/72
== END 2022-05-13 15:05 | disposition home or self-care (01) ==
LOC: ED 10:05
DX: M79.604 Pain in right leg (principal); I49.8 Other specified cardiac arrhythmias; I48.91 Unspecified atrial fibrillation
CPT/HCPCS: 93005; 93971; 99282; 99284; A9270